=== PATIENT | male | born 1960 | race Two or more races ===

== ENCOUNTER → 2017-03-29 | Outpatient (CLI) | payer MEDICAID ==
[~2017-03-29] MED LIST: CYCL-259 PO; DICL75TA2 PO; GABA-826 PO; HYDR-3237 PO; LISI-170 PO; METF500T4 PO; VIT1TABL46 PO
== END | disposition home or self-care (01) ==
LOC: RAD 11:51
PROVIDERS: ATTEND Psychiatry & Neurology Neurology
DX: M50.223 Other cervical disc displacement at C6-C7 level (principal); M48.02 Spinal stenosis, cervical region
CPT/HCPCS: 72141

== ENCOUNTER 2017-07-14 10:57 | Emergency (ER) | payer MEDICAID ==
[~2017-07-14] VITALS: Ht 152.4 cm; Wt 75.0 kg
[2017-07-14 11:10] VITALS: BP 111/74
[2017-07-14] MEDS ORDERED: ROPINIROLE 0.5MG TABLET PO ONE (12:30)
== END 2017-07-14 13:28 | disposition home or self-care (01) ==
LOC: ED 12:38
DX: G20 Parkinson's disease (principal); R53.1 Weakness; E11.9 Type 2 diabetes mellitus without complications; G89.29 Other chronic pain; I10 Essential (primary) hypertension; Z76.0 Encounter for issue of repeat prescription
CPT/HCPCS: 99282